=== PATIENT | female | born 1980 ===

== ENCOUNTER 2017-09-04 06:11 | Day surgery (SDC) | payer OTHER ==
[2017-08-23 15:37] VITALS: BMI 33.8
--- NOTE | 2017-09-04 07:06 | CP.SDSHP ---
Same Day Surgery H & P - History Proposed Procedure: Left ankle arthroscopy/removal of hardware Pre-Op Diagnosis: painful hardware - Previous Medical/Surgical History Previous Surgical History: ankle surgery, facial surgery - Allergies Allergies: Allergies No Known Allergies Allergy (Verified 09/04/17 06:34) - Physical Exam Mental Status: Alert & Oriented x3 Heart: WNL Lungs: WNL GI: WNL - {Optional Preform as Required} Ortho: Other (well healed incisions to medial and lateral left ankle, +DP/PT pulses, no erythema, sensation intact) - Impression Impression: 37F with left ankle painful hardware s/p left ankle ORIF 4 years ago for ankle arthroscopy/removal of hardware Pt. Evaluated Today:Candidate for Anesthesia & Procedure: Yes - Date & Time Date: 09/04/17 Time: 07:06 Short Stay Discharge - Short Stay Discharge Admitting Diagnosis/Reason for Visit: [id number] Disposition: HOME/ ROUTINE Referrals: Theodore Delatorre III, MD [Primary Care Provider] - Past Patient History - Past Medical History & Family History Past Medical History?: No - Past Social History Smoking Status: Never Smoked - SURGICAL HISTORY Hx Surgeries: Yes Hx Musculoskeletal Surgery: Yes (LEFT ANKLE OCT 2012) - ANESTHESIA Hx Anesthesia: Yes Hx Anesthesia Reactions: No Hx Malignant Hyperthermia: No Has any member of the family had a problem w/ anesthesia?: No
[2017-09-04] MEDS ORDERED: Lactated Ringer's 1,000 ML IV ONE (07:15)
[2017-09-04] MEDS ORDERED: Midazolam 2 MG/2 ML VIAL ONE (07:31)
[2017-09-04] MEDS ORDERED: Propofol 10 mg/ml Inj (20 ML) ONE (07:31)
[2017-09-04] MEDS ORDERED: Lidocaine 4% (Laryng-O-Jet) Kit MM ONE (07:31)
[2017-09-04] MEDS ORDERED: Ropivacaine 0.5% 30ML IV ONE (07:35)
[2017-09-04] MEDS ORDERED: ceFAZolin IV 1 gm in Dextrose 2 GM/100 ML BAG IVPB ONE (07:46)
[2017-09-04] MEDS ORDERED: Lidocaine 1% Inj (20ml) ONE (07:46)
[2017-09-04] MEDS ORDERED: Bacitracin Ointment 30 GM TUBE ONE (07:47)
[2017-09-04] MEDS ORDERED: Thrombin Topical 5,000 IU Spray Kit ONE (07:47)
[2017-09-04] MEDS ORDERED: Absorbable Gelatin Sponge Size 100 ONE (07:47)
[2017-09-04] MEDS ORDERED: Rocuronium 10 mg/ml (5 ml) ONE (08:03)
[2017-09-04] MEDS ORDERED: Dexamethasone 4 mg/1 ml ONE (09:04)
[2017-09-04] MEDS ORDERED: Neostigmine Methylsulfate 3mg/3ml Syringe IV ONE (09:10)
--- NOTE | 2017-09-04 09:44 | PCM.ANESB2 ---
Popliteal Nerve Block - Popliteal Nerve Block Date of Procedure: 09/04/17 Anesthesiologist: Johnny Pre-Procedure Diagnosis: Left ankle painful hardware Post-Procedure Diagnosis: Same Procedure Performed: Popliteal Nerve Block Left - Procedure Popliteal Nerve Block: This procedure was explained to the patient that it is for post-operative pain management. Consent was obtained after a thorough discussion with the patient regarding the benefits and possible complications of local anesthetic block of the sciatic nerve at the popliteal level. The patient was brought to the operating room and standard monitors are applied. Time-out was held with the circulating nurse to confirm the correct surgery and the appropriate block. After applying oxygen by nasal cannula and administering IV Sedation, patient's operative leg was gently raised and supported and the groove in between the biceps femoris and vastus lateralis muscles was carefully palpated. The skin approximately 8cm above the popliteal crease was then marked. The ultrasound transducer was then applied to the posterior thigh approximately 8cm above the popliteal crease in the transverse plane and the sciatic nerve before its division was visualized lateral to the popliteal artery and in between the bicep femoris and semimembranosus/semitendinosus muscles. After identification, the lateral portion of the thigh was prepped with Betadine solution three times and Lidocaine 1% was injected subcutaneously for topical anesthesia. At this point, a # 21 gauge Stimuplex insulated 4 inch needle was inserted into pre-marked area and advanced in a perpendicular direction. The needle was inserted above the ultrasound transducer in-plane towards the sciatic nerve in a [id number] direction. Needle advancement was performed carefully under direct ultrasound visualization. Nerve stimulator was used and dorsiflexion of the _ left____ foot was elicited at a current of __0.4___ MA. After repeated negative aspiration, __20___cc of __.5___ % ____ropivacaine was injected. Under ultrasound guidance the local anesthetics were observed surrounding sciatic nerve . The needle was removed intact and sterile dressing was applied. The patient tolerated the popliteal nerve block well with stable vital signs and was subsequently prepared for the surgery.
--- NOTE | 2017-09-04 09:47 | PCM.SURG1 ---
Surgeon's Initial Post Op Note - Surgeon's Notes Surgeon: Juan Ramon Watch Band Assembler: CHRISTOPHER Bowling Type of Anesthesia: General Endo Anesthesia Administered By: DR Turner Pre-Operative Diagnosis: painful hardware L fibula. arthritis (secondary) tibiotalar joint L. synovits L ankle joint Operative Findings: as above Post-Operative Diagnosis: as above Operation Performed: Removal hardware (deep). surgical arthroscopy L ankle/ chondroplasty/debridemet. aurg arthroscopy- partial synovectomy. inbtrraarticular injection. appl post splint ( short leg) Specimen/Specimens Removed: plate screws/synvioum/cartilage Estimated Blood Loss: EBL {In ML}: 5 Blood Products Given: N/A Drains Used: No Drains Post-Op Condition: Good Date of Surgery/Procedure: 09/04/17 Time of Surgery/Procedure: 08:40 (time in rrom 7:45)
[2017-09-04] MEDS ORDERED: Lactated Ringer's 1,000 ML IV SCH (10:00)
[2017-09-04] MEDS ORDERED: Oxycodone/Acetaminophen 5/325 mg Tab PO PRN (10:10)
[2017-09-04 11:12] VITALS: TEMP 98.4
[2017-09-04 12:04] VITALS: BP 133/81; PULSE 71; RESP 45; O2SAT 99
--- NOTE | 2017-09-04 17:01 | RAD ---
PROCEDURE: Left Ankle Radiographs. HISTORY: pt in pacu, s/p hardware removal COMPARISON: None FINDINGS: BONES: Postoperative findings related to removal of hardware from the distal left fibula. Residual partially fenestrated screw in the distal tibia. Plantar and Achilles Tendon insertion calcaneal spurs. JOINTS: Degenerative changes/ posttraumatic findings ankle mortise SOFT TISSUES: Normal. OTHER FINDINGS: None. IMPRESSION: Satisfactory postoperative status.
--- NOTE | 2017-09-04 17:08 | RAD ---
PROCEDURE: Fluoroscopy up to 1 hr. HISTORY: HARDWARE REMOVAL COMPARISON: None TECHNIQUE: Standard protocol for this study/examination. FINDINGS: Total fluoroscopic time (continuous mode) utilized during the procedure: 1.9 seconds. Submitted images from the current procedure: 1.0 IMPRESSION: Less than 1 hr fluoroscopic time utilized during performance of the procedure.
--- NOTE | 2017-09-04 19:47 | OP ---
PROCEDURE DATE: 09/04/2017 PREOPERATIVE DIAGNOSES: 1. Painful hardware, left ankle. 2. Secondary posttraumatic osteoarthritis of the left ankle. PROCEDURES: 1. Removal hardware, deep. 2. Surgical arthroscopy, extensive debridement of the tibiotalar joint including chondroplasty of the talar dome. 3. Surgical arthroscopy, excision meniscoid body. 4. Surgical arthroscopy, partial tricompartmental synovectomy. 5. Allograft, autograft bone graft to the distal fibula. 6. Terrence Austin compression dressing and posterior splint are applied. SURGEON: Theodore Delatorre MD. PSYCHOLOGY DEPARTMENT CHAIR: Mary Rodrigez, certified registered nursing assistant principal. ANESTHESIA: General endotracheal anesthesia. COMPLICATIONS: None. DRAINS: None. OPERATIVE INDICATION: Michelle Alonzo is a woman who 3 years ago underwent ORIF of a fracture at [place]. The patient has been having pain in the area of the hardware with migration of the screw. Pros, cons, risks, and benefits of surgical arthroscopy of the ankle and hardware removal discussed. The possibility of mechanical failure, infection, thromboembolic disease, ankle stiffness, persistent pain are discussed. The concept that the patient does have an arthritic ankle is discussed. The informed consent is accomplished in the office in the presence of the culturally competent check processing clerk, her son as well as in the preoperative holding area with her significant other. DESCRIPTION OF PROCEDURE: After having obtained informed consent in the above fashion, after the satisfactory induction of general and popliteal block anesthesia by Dr. Ron Turner, after having identified side, site, and procedure, the patient identified as Michelle Alonzo, in the supine position with all bony prominences well padded, the left lower extremity was prepped and free draped in usual fashion for lower extremity surgery. The tourniquet had been applied, but is not yet inflated. After exsanguinating the limb using a 6-inch Esmarch bandage, tourniquet, which had been applied, is inflated to 350 mmHg. The arthroscopic portion of the procedure will be first accomplished. The joint is insufflated from an anterolateral portal using #18-gauge spinal needle, followed by #11 blade, followed by spreading and introduction of the blunt trocar in the arthroscope. With the arthroscope anterolaterally, there was found to be a quite dense synovitis of the tibiotalar joint. Triangulation was accomplished from an anteromedial portal using #18 gauge spinal needle, followed by #11 blade, followed by spreading. With the arthroscope anterolaterally, the tibiotalar joint is visualized. There was found to be evidence of meniscoid body as well as dense synovitis. The anteromedial portal having been accomplished, taking great care to avoid injury to the saphenous vein or other neurocirculatory structures. The arthroscopic shaver was introduced and a careful synovectomy of the tibiotalar joint is accomplished. Synovectomy of the tibiotalar joint having been accomplished, excision of the meniscoid body is accomplished as well using the 3.4 mm Motion [employer] suction punch. With the arthroscope again placed now anteromedially, extensive debridement of the tibiotalar (ankle joint) is accomplished. There was found to be evidence of complete denudation of a significant portion of the talar dome and a chondroplasty is accomplished using the arthroscopic shaver. Chondroplasty having been accomplished, excision of the meniscoid body, partial synovectomy having been accomplished, an extensive debridement of the joint including chondroplasty is accomplished. At this point in time, the joint is thoroughly irrigated. Closure was with interrupted Vicryl and nylon. Attention was turned to the fibular plate. An incision was described one fingerbreadth distal to the plate and one fingerbreadth proximal, an ellipse of skin is removed. Skin incision is carried down through the skin and subcutaneous tissue. The ellipse of skin is removed. Dissection was carried down to the plate, great care was taken to remain cognizant of the sural nerve. This having been accomplished, the hardware was identified. Each sequential screw was removed using the osteotome, the plate was removed. Autograft bone and allograft bone grafting accomplished. The distal fibula at the marginal plate, which was excavated a bit to remove the plate. The wound was thoroughly irrigated. Closure is in layers with interrupted Vicryl and tiffany. Tourniquet is deflated. Terrence Austin compression dressing and posterior splint are applied. Theodore Delatorre MD
== END 2017-09-04 13:00 | disposition home or self-care (01) ==
LOC: H.OPSURG 06:11
PROVIDERS: ATTEND Orthopaedic Surgery
DX: T84.84XA Pain due to internal orthopedic prosthetic devices, implants and grafts, initial encounter (principal); Y83.1 Surgical operation with implant of artificial internal device as the cause of abnormal reaction of the patient, or of later complication, without mention of misadventure at the time of the procedure
CPT/HCPCS: 20680; 29895; 73610; 88300; 88304; 97161; J0171; J0690; J1100; J2001; J2250; J2704; J2710; J3010; J7030; J7120